=== PATIENT | female | born 1995 | race Two or more races ===

== ENCOUNTER 2019-01-17 03:28 | Emergency (ER) | payer SELFPAY ==
[~2019-01-17] VITALS: Ht 177.8 cm; Wt 81.6 kg
--- NOTE | 2019-01-17 03:36 | NUR ---
ED Nurse Note: pt walked in to ED C/O dizziness and headache. pt reports having vertigo about 4 years ago. VSS. pt is alert x4.
[2019-01-17 03:41] VITALS: BP 152/88
[2019-01-17] MEDS ORDERED: Meclizine 25mg tab ORAL PRN (03:45)
--- NOTE | 2019-01-17 03:59 | Emergency Room Report ---
History of Present Illness General Chief Complaint: Dizziness Source: Patient Present Illness HPI Disclaimer: Please note that this report is being documented using [employer] technology. This can lead to erroneous entry secondary to incorrect interpretation by the dictating instrument. HPI: 23-year-old female with a history of peripheral vertigo presents for evaluation of vertigo symptoms. Patient states she was in her usual state of health when she went to bed last evening however she woke up early this morning complaining of significant nausea, sensation of spinning to the right whenever she turned her head to either direction. She believes she turned quickly to the right while in bed which triggered her current symptoms. States he had a similar presentation approximately 4 years ago and was treated successfully with oral medication but cannot recall the name of it. She notes a generalized headache and mild photophobia as well as mild nausea. Denies vomiting, chest pain, palpitations. No recent illness. Denies changes in hearing acuity, denies tinnitus, denies ear pain or fullness. Denies recent trauma. PMH: Vertigo PSH: Denies Allergies: Denies Social Hx: Denies drug or alcohol abuse Allergies: Coded Allergies: SHELLFISH DERIVED (Verified Allergy, Unknown, 01/17/19) Patient History Last Menstrual Period: 01/14/19 Now: No Nursing Documentation-PMH Past Medical History: No History, Except For Review of Systems All Other Systems: negative except mentioned in HPI Physical Exam Vital Signs Date Time Temp Pulse Resp B/P (MAP) Pulse Ox O2 Delivery O2 Flow Rate FiO2 01/17/19 03:33 97.9 59 18 134/92 (106) 99 Room Air 01/17/19 03:41 98 General: Awake and alert, no acute distress HEENT: NC/AT. EOMI. PERRLA. There is horizontal nystagmus with fast component beating to the right on rightward gaze. Head impulse testing is normal. Facial depressions are symmetrical. Tympanic membranes are pearly salcedo, nonbulging with clear landmarks. Cardiovascular: RRR. S1 and S2 normal. No murmur appreciated Resp: Normal work of breathing. No cough, wheezing or crackles appreciated Abdomen: Abdomen is soft, nondistended. Nontender Skin: Intact. No abrasions, laceration or rash over the exposed skin MSK: Normal tone and bulk. Moving all extremities. No obvious deformity. Neuro: Awake and alert. Mentating appropriately. Sensation is intact over the face, symmetrical facial expressions. There is no ataxia on [id number] testing or [id number] testing. Head impulse testing is negative. There is rightward beating nystagmus with right gaze. Medical Decision Making Diagnostic Impression: Primary Impression: Vertigo ER Course This 23-year-old female with a history of peripheral vertigo presenting for evaluation of vertiginous symptoms beginning early this morning. Differential includes but is not limited to BPPV, Mnire's disease, vestibular neuritis, migraine associated vertigo, central lesion. Of these, BPPV or migraine associated vertigo are the most likely. The patient has no other neurologic findings has no ataxia on exam, no diplopia, no facial numbness or weakness. She has fast rightward beating component of horizontal nystagmus with rightward gaze and normal head impulse test. We will treat symptomatically with meclizine and monitor for improvement. If no significant improvement occurs will broaden differential. Reevaluation Time: 04:41 Last Vital Signs Date Time Temp Pulse Resp B/P (MAP) Pulse Ox O2 Delivery O2 Flow Rate FiO2 01/17/19 03:41 98.0 81 18 152/88 99 Room Air 01/17/19 03:41 98 Reevaluation Impression Symptoms have completely resolved after receiving meclizine. No more vertiginous symptoms with head movement. She is able to ambulate with a steady gait. Her exam remains nonfocal. Nystagmus is now resolved. Patient will be discharged home with prescription for meclizine and follow-up closely with her PMD at [facility]. We discussed reasons to return to the emergency department. She understands and agrees with treatment plan. Disposition: HOME, SELF-CARE Condition: Improved Scripts Meclizine Hcl* (MECLIZINE*) 25 Mg Tablet 25 MG ORAL THREE TIMES A DAY for 10 Days, #30 TAB Prov: Nicolas De Anda MD 01/17/19 Nicolas De Anda MD Jan 17, 2019 03:59
--- NOTE | 2019-01-17 04:20 | NUR ---
ED Nurse Note: pt took antivert PO. pt states her headache is resolved and she is able to move her head without feeling dizzy. VSS
[2019-01-17] MEDS ORDERED: MECLIZINE HCL25 MG ORAL (04:40)
[2019-01-17 04:44] VITALS: BP 128/80
--- NOTE | 2019-01-17 04:44 | NUR ---
ER DISCHARGE NOTE: Patient is cleared to be discharged per ERMD, pt is aox4, on room air, with stable vital signs. pt was given dc and prescription instructions, pt was able to verbalize understanding, pt id band removed without complications. pt is able to ambulate with steady gait. pt took all belongings.
== END 2019-01-17 04:44 | disposition home or self-care (01) ==
LOC: EMR 03:50
DX: R42 Dizziness and giddiness (principal); Z91.013 Allergy to seafood
CPT/HCPCS: 99282

== ENCOUNTER 2019-05-12 14:05 | Emergency (ER) | payer OTHER ==
[~2019-05-12] VITALS: Ht 172.7 cm; Wt 82.6 kg
[~2019-05-12 14:05] MED LIST: MECLIZINE HCL25 MG ORAL
--- NOTE | 2019-05-12 14:28 | Emergency Room Report ---
History of Present Illness General Chief Complaint: Eye Problems Source: Patient Present Illness HPI 23-year-old female with no significant past medical history here complaining of waking up this morning with pruritus of right eye. Denies any eye trauma, chemical exposure. Denies wearing eye make-up. Reports that she had minimal yellow discharge from the eye today. Denies photophobia and blurry vision. Denies URI symptoms, fever and chills. Has not taken medication for symptom relief. Allergies: Coded Allergies: SHELLFISH DERIVED (Verified Allergy, Unknown, 01/17/19) Patient History Past Medical History: see triage record Past Surgical History: unable to obtain Pertinent Family History: none Last Menstrual Period: 05/05/2019 Now: No : 0 Immunizations: UTD Reviewed Nursing Documentation: PMH: Agreed; PSxH: Agreed Nursing Documentation-PMH Past Medical History: No Stated History Review of Systems All Other Systems: negative except mentioned in HPI Physical Exam Vital Signs Date Time Temp Pulse Resp B/P (MAP) Pulse Ox O2 Delivery O2 Flow Rate FiO2 05/12/19 14:11 98.2 69 18 128/78 (95) 96 Room Air Sp02 EP Interpretation: reviewed, normal General Appearance: no apparent distress, alert, GCS 15, non-toxic Head: normocephalic, atraumatic Eyes: right eye other - Conjunctivae injected; bilateral eye PERRL ENT: hearing grossly normal, normal pharynx, no angioedema, normal voice Neck: full range of motion, supple/symm/no masses Respiratory: chest non-tender, lungs clear, normal breath sounds, no rhonchi, no retraction, no wheezing, speaking full sentences Cardiovascular #1: regular rate, rhythm, no edema, no murmur, normal capillary refill Gastrointestinal: non tender, soft Genitourinary: no CVA tenderness Neurologic: alert, motor strength/tone normal, oriented Psychiatric: judgement/insight normal, memory normal, mood/affect normal, no suicidal/homicidal ideation Skin: no rash Lymphatic: no adenopathy Medical Decision Making PA Attestation All my diagnosis and treatment plans were reviewed ad discussed with my supervising physician Dr. Modi Diagnostic Impression: Primary Impression: Conjunctivitis, bacterial Additional Impression: Conjunctivitis, allergic ER Course 23-year-old female with no significant past medical history here complaining of waking up this morning with pruritus of right eye. Denies any eye trauma, chemical exposure. Denies wearing eye make-up. Reports that she had minimal yellow discharge from the eye today. Denies photophobia and blurry vision. Denies URI symptoms, fever and chills. Has not taken medication for symptom relief. Ddx considered but are not limited to: bacterial conjunctivitis, allergic conjunctivitis, viral conjunctivitis, periorbital cellulitis, global trauma Vital signs: are WNL, pt. is afebrile H&PE are most consistent with: Bacterial conjunctivitis, allergic conjunctivitis ORDERS: Ofloxacin, Zaditor eyedrops ED INTERVENTIONS: None required at this time. DISCHARGE: At this time pt. is stable for d/c to home. Will provide printed patient care instructions, and any necessary prescriptions. Care plan and follow up instructions have been discussed with the patient prior to discharge. Take medication as directed, follow-up with primary care provider, possible referral to tactical debriefer officer upon request of primary care. If worsening symptoms return to the emergency room Last Vital Signs Date Time Temp Pulse Resp B/P (MAP) Pulse Ox O2 Delivery O2 Flow Rate FiO2 05/12/19 14:11 98.2 69 18 128/78 (95) 96 Room Air Disposition: HOME, SELF-CARE Condition: Stable Scripts Ketotifen Fumarate (ZADITOR) 5 Ml Drops 1 DROP RIGHT EYE BID for 30 Days, #5 ML 0 Refills Prov: Jaycee Bruner 05/12/19 Ofloxacin (Ofloxacin) 5 Ml Drops 2 DROP OP Q6HR for 7 Days, #5 ML Prov: Jaycee Bruner 05/12/19 Patient Instructions: Bacterial Conjunctivitis, [id number] Additional Instructions: Take medication as directed, if worsening symptoms return to the emergency room. follow up with primary care provider Jaycee Bruner May 12, 2019 14:28
[2019-05-12] MEDS ORDERED: OFLOXACIN10 ML OP (14:30)
[2019-05-12] MEDS ORDERED: ZADITOR5 ML RIGHT EYE (14:30)
[2019-05-12 14:34] VITALS: BP 128/78
--- NOTE | 2019-05-12 14:35 | NUR ---
ER DISCHARGE NOTE: Patient is cleared to be discharged per ERMD, pt is aox4, on room air, with stable vital signs. pt was given dc and prescription instructions, pt was able to verbalize understanding, pt is able to ambulate with steady gait. pt took all belongings.
[2019-05-12 14:38] VITALS: BP 128/78
== END 2019-05-12 14:40 | disposition home or self-care (01) ==
LOC: EMR 14:27
DX: H10.13 Acute atopic conjunctivitis, bilateral (principal); Z91.013 Allergy to seafood
CPT/HCPCS: 99282